=== PATIENT | female | born 1980 | race Caucasian/White ===

== ENCOUNTER 2018-02-07 08:05 | Outpatient (CLI) | payer MEDICAID, SELFPAY ==
[2018-02-07 10:04] LABS: Cholesterol 244 mg/dL (50-200); HDL Cholesterol 50 mg/dL (40-60); LDL CHOLESTEROL 171 mg/dL (<100); Triglyceride 101 mg/dL (30-150)
== END 2018-02-07 08:25 ==
PROVIDERS: PCP Nurse Practitioner; Visit Provider Nurse Practitioner
DX: E78.5 Hyperlipidemia, unspecified (principal)
CPT/HCPCS: 36415; 80061; 83721

== ENCOUNTER 2018-07-04 08:32 | Outpatient (CLI) | payer MEDICAID, SELFPAY ==
[2018-07-04 09:46] LABS: Cholesterol 161 mg/dL (50-200); HDL Cholesterol 35 mg/dL (40-60); LDL CHOLESTEROL 108 mg/dL (<100); Triglyceride 55 mg/dL (30-150)
== END 2018-07-04 08:52 ==
PROVIDERS: PCP Nurse Practitioner; Visit Provider Nurse Practitioner
DX: E78.5 Hyperlipidemia, unspecified (principal)
CPT/HCPCS: 36415; 80061; 83721

== ENCOUNTER 2018-11-15 01:02 | Outpatient (CLI) | payer MEDICAID, SELFPAY ==
--- NOTE | 2018-11-15 14:01 | DI.COMBO_ITS ---
SYMPTOM/DIAGNOSIS: LUMP 4:00 ON RIGHT. CYSTIC BREAST TISSUE N63.0 N63.0 Z80.3 MAMMOGRAPHY: RIGHT BREAST ULTRASOUND: Mammograms were interpreted according to the usual protocol including computer analysis with CAD system, tomosynthesis and C view imaging. Comparison with prior examinations. Right breast ultrasound was also performed. Breast density category A. No suspicious masses or microcalcifications are seen. The skin and axilla are unremarkable. A right breast ultrasound was performed. The upper outer quadrants and the lower inner quadrants of the right breast were evaluated sonographically. No cystic or solid masses are present.. IMPRESSION: No evidence for malignancy. Yearly mammography is recommended. Category 1. Breast density category A. The findings were discussed with the patient on the date of the examination. [facility] ASSESSMENT OF FINDINGS: Negative. Category 1. Patient will receive a letter notifying them of these results. BI-RAD category A. The breasts are almost entirely fatty.
== END 2018-11-15 01:22 ==
PROVIDERS: PCP Nurse Practitioner; Visit Provider Nurse Practitioner
DX: N63.14 Unspecified lump in the right breast, lower inner quadrant (principal); Z80.3 Family history of malignant neoplasm of breast; N60.11 Diffuse cystic mastopathy of right breast
CPT/HCPCS: 76642; 77062; 77066; G0279

== ENCOUNTER 2019-03-02 01:22 | Outpatient (CLI) | payer MEDICAID, SELFPAY ==
[2019-03-02 12:03] LABS: Calculated LDL 177 mg/dL; Cholesterol 247 mg/dL (<200); HDL Cholesterol 56 mg/dL (40-60); TSH (W/Ref FT4) 1.07 uIU/mL (0.36-3.74); Triglyceride 70 mg/dL (<150)
== END 2019-03-02 01:42 ==
PROVIDERS: PCP Nurse Practitioner; Visit Provider Nurse Practitioner
DX: E78.5 Hyperlipidemia, unspecified (principal)
CPT/HCPCS: 36415; 80061; 84443

== ENCOUNTER 2019-11-18 02:16 | Outpatient (CLI) | payer MEDICAID, SELFPAY | END 2019-11-18 02:36 | PROVIDERS: PCP Nurse Practitioner; Visit Provider Nurse Practitioner | DX: R69 Illness, unspecified (principal) | CPT/HCPCS: 36415; 80061; 84443 ==

== ENCOUNTER 2020-03-19 02:17 | Outpatient (CLI) | payer MEDICAID, SELFPAY ==
[2020-03-19 11:12] LABS: Calculated LDL 191 mg/dL (<100); Cholesterol 264 mg/dL (<200); HDL Cholesterol 55 mg/dL (40-60); TSH (W/Ref FT4) 1.67 uIU/mL (0.36-3.74); Triglyceride 90 mg/dL (<150)
== END 2020-03-19 02:37 ==
PROVIDERS: PCP Nurse Practitioner; Visit Provider Nurse Practitioner
DX: E78.5 Hyperlipidemia, unspecified (principal); F41.9 Anxiety disorder, unspecified
CPT/HCPCS: 36415; 80061; 84443

== ENCOUNTER 2020-04-02 13:34 | Outpatient (REF) | payer MEDICAID, SELFPAY | END 2020-04-02 13:54 | LOC: LBO 13:34 | PROVIDERS: PCP Nurse Practitioner; Visit Provider Family Medicine | DX: J03.90 Acute tonsillitis, unspecified (principal) | CPT/HCPCS: 87070 ==

== ENCOUNTER 2020-05-20 15:04 | Outpatient (CLI) | payer MEDICAID, SELFPAY ==
--- NOTE | 2020-05-20 15:00 | RT.EKG_ITS ---
APPROVED REPORT Exam: Resting ECG Patient Location: O HR:79 bpm ECG Measurements Heart Rate 79 AXIS AL 145 P 52 QRSd 99 QRS 26 QT 375 T 25 QTc 430 Conclusion Sinus rhythm...normal P axis, V-rate 60- 99 Normal Electrocardiogram
== END 2020-05-20 15:05 | disposition home or self-care (01) ==
LOC: DI.KIM 15:05
PROVIDERS: PCP Nurse Practitioner; Visit Provider Nurse Practitioner
DX: F90.9 Attention-deficit hyperactivity disorder, unspecified type (principal); F15.90 Other stimulant use, unspecified, uncomplicated
CPT/HCPCS: 93010

== ENCOUNTER 2020-06-12 03:07 | Outpatient (CLI) | payer MEDICAID, SELFPAY ==
[2020-06-12 07:41] LABS: HGB 14.2 g/dL (11.2-15.7); MCH 30.4 pg (27.0-33.0); MCHC 33.8 % (32.0-36.0); MCV 89.9 fL (80-95); MPV 10.6 fL (8.0-11.0); Platelet Count 263 10^3/uL (130-400); RBC 4.67 10^6/uL (3.93-5.22); RDW 12.4 % (11.7-14.6); RDW-SD 40.7 fL; WBC 6.78 10^3/uL (4.4-10.8)
[2020-06-12 09:07] LABS: ALT 26 U/L (14-59); AST 13 U/L (15-37); Albumin 3.8 g/dL (3.4-5.0); Alkaline Phosphatase 66 U/L (46-116); Anion Gap 9.9 mmol/L (3-11); BUN 19 mg/dL (7-18); Bilirubin, Total 0.5 mg/dL (0.2-1.0); CO2 26.1 mmol/L (21.0-32.0); CREATININE 0.8 mg/dL (0.55-1.02); Calcium 8.7 mg/dL (8.5-10.1); Calculated LDL 149 mg/dL (<100); Chloride 103 mmol/L (98-107); Cholesterol 214 mg/dL (<200); Glucose 98 mg/dL (74-106); HDL Cholesterol 49 mg/dL (40-60); Potassium 4.2 mmol/L (3.5-5.1); Sodium 139 mmol/L (136-145); Total Protein 7.3 g/dL (6.4-8.2); Triglyceride 81 mg/dL (<150)
== END 2020-06-12 03:08 | disposition home or self-care (01) ==
LOC: LBO 03:07
PROVIDERS: PCP Nurse Practitioner; Visit Provider Nurse Practitioner
DX: E11.9 Type 2 diabetes mellitus without complications (principal); E78.5 Hyperlipidemia, unspecified; F90.8 Attention-deficit hyperactivity disorder, other type
CPT/HCPCS: 36415; 80053; 80061; 85027; 83036

== ENCOUNTER 2020-06-12 03:40 | Outpatient (CLI) | payer MEDICAID, SELFPAY ==
--- NOTE | 2020-06-12 07:00 | DI.MAMMO_ITS ---
EXAM: MAMMO SCREENING CLINICAL HISTORY: screening,z12.39 TECHNIQUE: Mammograms were interpreted according to the usual protocol including computer analysis w [employer] CAD system, tomosynthesis and C-view imaging. COMPARISON: 2017 and 2018 FINDINGS: The breasts are composed of mainly fatty density , Breast Density category A. No suspicious masses or suspicious microcalcifications are seen. No skin thickening or abnormal axillary lymph nodes are seen. There has been no significant change from prior exams. IMPRESSION: BI-RADS Category 1, Negative mammogram Yearly screening mammography is recommended. Breast Density - Category A, fatty density. A negative radiographic report should not delay biopsy if a dominant or clinically suspicious mass is present. Up to ten percent of cancers are not identified on mammography. A negative report may reinforce clinical impression. Adenosis and dense breasts may obscure an underlying neoplasm. False positive reports average 6 to 10%. Patient will receive a letter notifying them of these results.
== END 2020-06-12 04:00 ==
PROVIDERS: PCP Nurse Practitioner; Visit Provider Nurse Practitioner
DX: Z12.31 Encounter for screening mammogram for malignant neoplasm of breast (principal)
CPT/HCPCS: 77063; 77067

== ENCOUNTER 2020-06-12 18:00 | Outpatient (REF) | payer MEDICAID, SELFPAY ==
--- NOTE | 2020-06-12 10:15 | PAPFT_PTH ---
PATIENT: Rosetta Golden LOC: N U#:[id number] AGE/SX: 40/F ROOM: RE06/12/[address]: Erma Viera APRN : 1980 BED: DIS: 06/12/2020 SPEC #: [id number] RECD: 06/12/20 18:32 STATUS: TRISHAKarthik REQ #: [id number] LYNN: 06/12/20 10:[address]: Erma Viera DEPT: [facility] Cytology RECD BY: Lisset Romero ENTERED: 06/12/20 18:32 SP TYPE: PAPFT OTHR DR: Suzanne Flores APRN Tissues: 1 - CX/ENDOCX FOR PAP SMEARS Procedures: PAP THIN PREP/UVM Screening HPV DNA PROBE Comments: [id number]
== END 2020-06-12 18:01 | disposition home or self-care (01) ==
LOC: LBN 18:00
PROVIDERS: PCP Nurse Practitioner; Visit Provider Nurse Practitioner Adult Health
DX: Z12.4 Encounter for screening for malignant neoplasm of cervix (principal); Z11.51 Encounter for screening for human papillomavirus (HPV)
CPT/HCPCS: 88142; 87624

== ENCOUNTER 2020-08-14 04:07 | Outpatient (CLI) | payer MEDICAID, SELFPAY ==
--- NOTE | 2020-08-14 06:26 | DI.US_ITS ---
Exam(s) US PELVIS TRANSVAGINAL EXAM: US PELVIS TRANSVAGINAL CLINICAL HISTORY: evaluate anatomy and endometrial stripe,MENORRHAGIA TECHNIQUE: Ultrasound performed using standard protocol. COMPARISON: US US breast RT complete from 11/15/2018 FINDINGS: Pelvic ultrasound was performed transabdominally and transvaginally. Uterus measures 11.6 x 4.1 x 5. 5 cm. Endometrial stripe is about 8 millimeters in thickness and appears homogeneous. No focal myom etrial abnormality seen. The ovaries have a normal follicular appearance. Right ovary measures 28 x 18 by 17 millimeters and left ovary measures 24 x 18 x 19 millimeters. Limited scanning of the kidneys is unremarkable. No free fluid in the cul-de-sac. IMPRESSION: Negative pelvic ultrasound. DATA REPOSITORY:
== END 2020-08-14 04:27 ==
PROVIDERS: PCP Nurse Practitioner; Visit Provider Obstetrics & Gynecology
DX: N92.0 Excessive and frequent menstruation with regular cycle (principal)
CPT/HCPCS: 76830; 76856

== ENCOUNTER 2020-08-20 13:59 | Outpatient (REF) | payer MEDICAID, SELFPAY ==
--- NOTE | 2020-08-20 13:30 | ENDOMET_PTH ---
PATIENT: Rosetta Golden LOC: LBN U#:[id number] AGE/SX: 40/F ROOM: RE08/20/[address]: Zenaida Ogden DO : 1980 BED: DIS: 08/20/2020 SPEC #: [id number] RECD: 08/20/20 17:42 STATUS: ARAM RE #: [id number] LYNN: 08/20/20 13:[address]: Zenaida Ogden DEPT: Surgical Specimen RECD BY: Lisset Romero ENTERED: 08/20/20 17:43 SP TYPE: Endomet OTHR DR: Suzanne Flores APRN Tissues: 1 - ENDOMETRIUM BX/ZACKERY Procedures: GROSS AND MICRO LEVEL 4 Comments: [id number]
== END 2020-08-20 14:00 | disposition home or self-care (01) ==
LOC: LBN 13:59
PROVIDERS: PCP Nurse Practitioner; Visit Provider Obstetrics & Gynecology
DX: N93.8 Other specified abnormal uterine and vaginal bleeding (principal); N85.8 Other specified noninflammatory disorders of uterus
CPT/HCPCS: 88305

== ENCOUNTER 2020-09-20 13:21 | Emergency (ER) | payer MEDICAID, SELFPAY ==
--- NOTE | 2020-09-20 13:30 | ED.GENADUL_ITS ---
Discharge Plan Disposition Patient Disposition: HOME Condition: Stable Discharge Details Clinical Impression: Back pain, Hematuria Primary Care Provider: Suzanne Flores ED Provider: Bk Alvarez Home Meds and New Rx's Prescriptions: Continued clindamycin phosphate 1 % gel 1 applic TP QHS Qty: 60 RF: 5 bupropion HCl [Wellbutrin XL] 300 mg tablet extended release 24 hr 300 mg PO DAILY Qty: 90 RF: 3 sertraline 100 mg tablet 100 mg PO DAILY Qty: 90 RF: 3 methylphenidate HCl 20 mg tablet 20 mg PO TID MDD 60mg Qty: 90 RF: 0 fluconazole 150 mg tablet 150 mg PO DAILY Qty: 1 RF: 1 Discharge Instructions Instructions: Hematuria (ED), Back Pain (ED) Additional Instructions: At this time your back pain appears to musculoskeletal, specifically her right SI joint. Gentle stretching as tolerated. Cool and/or warm compresses every 2 hours for 20 minutes. Siio-jjx-ebpawhg anti-inflammatory therapy such as Motrin or Naprosyn as we discussed. I do believe that your mild hematuria is likely incidental, it appears as though you have had the similar findings in your previous to urinalysis. As we discussed I recommend contacting your primary care provider tomorrow to discuss your ongoing back pain, eventual referral to physical therapy, orthopedics, SI injection, etc. may all be indicated. We also discussed if you would like to continue your work-up for the hematuria, likely referral to urology could be indicated as well. Discharge Data Discharge Date/Time-TO BE ENTERED AT DEPARTURE: 09/20/20 16:33 Medical Decision Making 40-year-old female presents with right-sided back pain, worse with movement, somewhat relieved with Naprosyn. Clinically this appears to musculoskeletal, does have point tenderness over the right SI joint, pain is worse with movement, positive straight leg raise. Denies fever, abdominal pain, nausea, vomiting, flank pain, dysuria, hematuria, etc. Patient specifically states that she is concerned about her kidneys. Will obtain IV access, CBC, CMP, urinalysis, test. If work-up unremarkable will give IV Toradol CBC and CMP unremarkable for any obvious emergent process. Urine blood test trace intact blood; however, when looking her previous urinalysis in 2017, 2013 she had blood in her urine then. 0-2 red cells in the microscopic. Discussed laboratory values and urinalysis with patient. Patient received IV Toradol, reports improvement of her symptoms. Her examination really is not consistent with renal stone. We discussed CT imaging during today's ER visit. Patient states that her mllkkk-kl-zrv had a bladder cancer, and her hematuria is overall concerning to her. I explained to her that a referral to urology and likely cystoscopy would be the standard of care for her hematuria but again I could certainly provide CT imaging today. Patient is comfortable not obtaining CT imaging today, treating her back discomfort is musculoskeletal, and will contact her primary care provider on Monday. At that time she will discuss her back pain, symptoms, response to conservative therapy. She understands that outpatient referral to PT, back specialist, etc. may be indicated. She will also discuss her hematuria and potential urology follow-up. Patient is comfortable with this plan and has no additional questions or concerns. Medical Records Medical records reviewed: Yes I reviewed the patient's medical records. Lab Data Lab results reviewed: Yes I reviewed the patient's lab results. Labs: Laboratory Tests Range/Units 09/20/20 09/20/20 09/20/20 13:50 13:55 13:55 WBC (4.4-10.8) 10^3/uL 10.32 RBC (3.93-5.22) 10^6/uL 4.99 Hgb (11.2-15.7) g/dL 15.0 Hct (36.0-46.0) % 45.7 MCV (80-95) fL 91.6 MCH (27.0-33.0) pg 30.1 MCHC (32.0-36.0) % 32.8 RDW (11.7-14.6) % 12.1 Plt Count (130-400) 10^3/uL 295 MPV (8.0-11.0) fL 10.9 Immature Gran % 0.3 Neutrophils % 63.9 Lymphocytes % 25.2 Monocytes % 8.2 Eosinophils % 1.7 Basophils % 0.7 Nucleated RBC % % 0 Absolute Neutrophils (1.2-6.7) 10^3/uL 6.59 Absolute Lymphocytes (1.2-3.4) 10^3/uL 2.60 Absolute Monocytes (0.1-0.8) 10^3/uL 0.85 H Absolute Eosinophils (0.0-0.7) 10^3/uL 0.18 Absolute Basophils (0.0-0.2) 10^3/uL 0.07 Sodium (136-145) mmol/L 139 Potassium (3.5-5.1) mmol/L 3.8 Chloride (98-107) mmol/L 102 Carbon Dioxide (21.0-32.0) mmol/L 25.1 Anion Gap (3-11) mmol/L 11.9 H BUN (7-18) mg/dL 15 Creatinine (0.55-1.02) mg/dL 0.9 Estimated GFR/1.73 m2 (mL/min/1.73m2) >= 60.00 Glucose (74-106) mg/dL 91 Calcium (8.5-10.1) mg/dL 8.7 Total Bilirubin (0.2-1.0) mg/dL 0.4 AST (15-37) U/L 19 ALT (14-59) U/L 35 Alkaline Phosphatase (46-116) U/L 91 Total Protein (6.4-8.2) g/dL 8.2 Albumin (3.4-5.0) g/dL 4.1 Urine Color (Yellow) Yellow Urine Clarity (Clear) Clear Urine pH (5-8) 7.0 Ur Specific [place] (1.005-1.025) 1.015 Urine Protein (Negative) mg/dL Negative Urine Ketones (Negative) mg/dL Negative Urine Blood (Negative) Trace-intact H Urine Nitrite (Negative) Negative Urine Bilirubin (Negative) Negative Urine Urobilinogen (Up TO 0.2) EU/dL 0.2 Ur Leukocyte Esterase (Negative) Negative Urine RBC (0-2) HPF 0-2 Urine WBC (0-5) HPF 0-2 Ur Epithelial Cells (Negative) HPF Few Urine Crystals (Negative) HPF Negative Urine Bacteria (Negative) HPF Negative Urine Casts (Negative) LPF Negative Urine Mucus (Negative) Negative Urine Other (Negative) Ur Culture Indicated? No Urine Glucose (Negative) mg/dL Negative HPI General Mode of arrival: ambulatory . Date/Time Provider Initiated Documentation: 09/20/20 13:30 . Limitations to Documentation: no limitations . Information obtained by: patient . HPI Narrative: This is a 40-year-old female, past medical history that includes hyperlipidemia, chronic anxiety, and menorrhagia, presenting to the ER today complaining of lower right back pain that began over the past 24 hours. Patient denies any recent illness or trauma. She states that the pain stays primarily in her right lower back and is worse with movement and is achy in nature. She did take an gjzi-uyg-jvumsbv anti- inflammatory that did relieve some of the discomfort. She denies fever, chest pain, shortness of breath abdominal pain, nausea, vomiting, change in bowel or bladder function, dysuria, hematuria, diarrhea, constipation, radiation of pain down her leg or into her groin. Denies numbness, tingling, weakness. Patient denies history of any back issues. Related Data Home Medications Medication Instructions Recorded Confirmed clindamycin phosphate 1 % topical 1 applic TP QHS #60 gm 01/23/19 09/20/20 gel bupropion HCl 300 mg 24 hr tablet, 300 mg PO DAILY #90 tab-cap 05/20/20 09/20/20 extended release sertraline 100 mg tablet 100 mg PO DAILY #90 tab-cap 05/20/20 09/20/20 methylphenidate HCl 20 mg tablet 20 mg PO TID #90 tab MDD 60mg 08/06/20 09/20/20 fluconazole 150 mg tablet 150 mg PO DAILY #1 tab 09/03/20 09/20/20 Previous Rx's Medication Instructions Recorded clindamycin phosphate 1 % topical 1 applic TP QHS #60 gm 01/23/19 gel bupropion HCl 300 mg 24 hr tablet, 300 mg PO DAILY #90 tab-cap 05/20/20 extended release sertraline 100 mg tablet 100 mg PO DAILY #90 tab-cap 05/20/20 methylphenidate HCl 20 mg tablet 20 mg PO TID #90 tab MDD 60mg 08/06/20 fluconazole 150 mg tablet 150 mg PO DAILY #1 tab 09/03/20 Allergies Allergy/AdvReac Type Severity Reaction Status Date / Time No Known Allergies Allergy Verified 09/20/20 13:36 Review of Systems Constitutional Constitutional: Denies fever(s) and Denies weakness Cardiovascular Cardiovascular: Denies chest pain and Denies dyspnea Respiratory Respiratory: Denies cough and Denies dyspnea Gastrointestinal Gastrointestinal: Denies abdominal pain, Denies nausea and Denies vomiting Genitourinary Genitourinary: Denies hematuria, Denies dysuria and Denies vaginal discharge Musculoskeletal Musculoskeletal: Reports back pain, Denies numbness and Denies tingling Integumentary/Breasts Skin/Breast: Denies rash Neurologic Neurologic: Denies numbness, Denies tingling and Denies weakness [facility] Medical History Bulky or enlarged uterus Chronic anxiety Depression (09/13/16) Hair thinning History of cervical biopsy (04/11/07) No intraepith lesion Hyperlipidemia Menorrhagia with irregular cycle Pancreatitis (07/25/10) Surgical History section x2 Family History Mother , Acute Leukemia Neoplasm Breast Father No problems noted. Social History Smoking/Tobacco Use Status: Never Second Hand Exposure: No Smoking risk assessment performed?: Yes Alcohol Intake: current Alcohol Intake frequency: a few times a week Drug use: Never Adopted: No Caregiver/Support person: No Foster care: No Household members: spouse and children Housing: house Number of Children: 2 Communication Needs: None Do you need help understanding health information?: Never current occupation: owns daycare Pets and animals: Yes Sexually active: Yes Do you think of yourself as: straight/heterosexual Current gender identity: female What is your relationship status?: How often do you talk on the phone with friends or family?: three or more times per week How often do you get together with friends or relatives?: decline to answer How often do you attend methodist or yazdanism services?: decline to answer Do you belong to any clubs or organized social groups?: decline to answer Panel score (0-1 are the most socially isolated patients): 2 What type of physical activity do you participate in: none Special aaron needs: No Seatbelt use: always Drive intox or ride w/intox emergency medical technician/driver: No Working smoke detector in home: Yes Fire extinguisher in home: Yes Carbon monox detector in home: Yes Do you feel safe in your relationship?: Yes Exam Const General: cooperative, healthy appearing, comfortable and no acute distress Orientation: alert and awake HENKY Head: normal to inspection, normocephalic and atraumatic Eyes General: appearance normal, both eyes and all related structures Conjunctivae: conjunctivae normal Neck Neck: normal visual inspection, full ROM, trachea midline and supple Resp Effort & Inspection: normal respiratory effort and able to speak in complete sentences Auscultation: clear to auscultation bilaterally Cardio Rate: regular rate Rhythm: regular rhythm GI Inspection: normal to inspection Palpation: soft, not firm, no guarding, no pulsatile masses and nontender Auscultation: normal bowel sounds Back/Spine/Pelvis Back: no CVA tenderness and back tenderness (Diffuse mild right lumbar) Thoracic/Lumbar Spine: straight leg raise positive (Right, 10 degrees, negative L side) Pelvis: no pain with anterior-posterior compression and no pain with lateral compression Sacroiliac joints: on the right tender to palpation Skin General skin exam: no rashes or lesions noted Neuro General: patient alert, patient awake, moves all extremities and no focal motor deficits Cognition: normal cognition Speech: speech normal Gait: normal gait Motor: muscle tone normal throughout and strength 5/5 throughout Sensory Exam: no sensory deficits noted Extrem General: normal to inspection, full ROM and capillary refill normal Psych Appearance: grossly normal Mental Status: mental status grossly normal
[2020-09-20 13:33] VITALS: BP 161/109; PULSE 75; RESP 16; TEMP 36.6; O2SAT 99
[2020-09-20 14:22] LABS: Bilirubin Negative (Negative); Blood Trace-intact (Negative); Clarity Clear (Clear); Glucose Negative (Negative); Ketones Negative (Negative); Leukocyte Esterase Negative (Negative); Nitrite Negative (Negative); Specific Gravity 1.015 (1.005-1.025); Urobilinogen 0.2 EU/dL (Up TO 0.2)
[2020-09-20 14:30] LABS: Bacteria Negative HPF (Negative); C & S Indicated? No; Casts Negative LPF (Negative); Crystals Negative HPF (Negative); Epithelial Cells Few HPF (Negative); Mucus Negative (Negative); RBC 0-2 HPF (0-2); WBC 0-2 HPF (0-5)
[2020-09-20 14:36] LABS: Abs Immature Grans 0.03 10^3/uL (0.0-0.06); Absolute Basophil Count 0.07 10^3/uL (0.0-0.2); Absolute Eosinophil Count 0.18 10^3/uL (0.0-0.7); Absolute Monocyte Count 0.85 10^3/uL (0.1-0.8); Absolute Neutrophil Count 6.59 10^3/uL (1.2-6.7); Basophils % 0.7; Eosinophils % 1.7; HCT 45.7 % (36.0-46.0); Immature Grans % 0.3; Lymphocytes % 25.2; MCH 30.1 pg (27.0-33.0); MCHC 32.8 % (32.0-36.0); MCV 91.6 fL (80-95); MPV 10.9 fL (8.0-11.0); Monocytes % 8.2; Neutrophils % 63.9; Nucleated RBC 0 %; Platelet Count 295 10^3/uL (130-400); RBC 4.99 10^6/uL (3.93-5.22); RDW 12.1 % (11.7-14.6); RDW-SD 40.5 fL; WBC 10.32 10^3/uL (4.4-10.8)
[2020-09-20 14:49] LABS: ALT 35 U/L (14-59); AST 19 U/L (15-37); Albumin 4.1 g/dL (3.4-5.0); Alkaline Phosphatase 91 U/L (46-116); Anion Gap 11.9 mmol/L (3-11); BUN 15 mg/dL (7-18); Bilirubin, Total 0.4 mg/dL (0.2-1.0); CO2 25.1 mmol/L (21.0-32.0); CREATININE 0.9 mg/dL (0.55-1.02); Calcium 8.7 mg/dL (8.5-10.1); Chloride 102 mmol/L (98-107); Glucose 91 mg/dL (74-106); Potassium 3.8 mmol/L (3.5-5.1); Sodium 139 mmol/L (136-145); Total Protein 8.2 g/dL (6.4-8.2)
[2020-09-20] MEDS: Ketorolac 30 MG/ML VIAL IVP (15:05)
[2020-09-20 16:30] VITALS: BP 114/82; PULSE 69; RESP 16; TEMP 36.7; O2SAT 99
== END 2020-09-20 16:33 | disposition home or self-care (01) ==
PROVIDERS: Emergency Provider Physician Assistant; PCP Nurse Practitioner
DX: M54.5 Low back pain (principal); R31.9 Hematuria, unspecified
CPT/HCPCS: 36415; 80053; 81025; 96374; 99284; 81003; 81015; 85025; 99283; J1885

== ENCOUNTER 2020-11-23 13:55 | Outpatient (CLI) | payer MEDICAID, SELFPAY ==
[2020-11-27 15:49] LABS: Testosterone, Free 0.35 ng/dL (0.06-1.00); Testosterone, Total 25 ng/dL (8-60)
== END 2020-11-23 13:56 | disposition home or self-care (01) ==
LOC: LOS 13:56
PROVIDERS: PCP Nurse Practitioner; Visit Provider Nurse Practitioner
DX: N92.6 Irregular menstruation, unspecified (principal); R79.9 Abnormal finding of blood chemistry, unspecified
CPT/HCPCS: 36415; 84402; 84403

== ENCOUNTER 2021-09-24 02:51 | Outpatient (CLI) | payer MEDICAID, SELFPAY ==
[2021-09-24 08:11] LABS: Hemoglobin A1C 5.1 % (<5.7)
[2021-09-24 09:03] LABS: Calculated LDL 136 mg/dL (<100); Cholesterol 212 mg/dL (<200); HDL Cholesterol 46 mg/dL (40-60); Triglyceride 150 mg/dL (<150)
== END 2021-09-24 02:52 | disposition home or self-care (01) ==
PROVIDERS: PCP Nurse Practitioner; Visit Provider Nurse Practitioner
DX: E78.5 Hyperlipidemia, unspecified (principal); E66.9 Obesity, unspecified; Z13.1 Encounter for screening for diabetes mellitus
CPT/HCPCS: 36415; 80061; 83036

== ENCOUNTER → 2021-11-17 01:25 | Outpatient (CLI) | payer MEDICAID, SELFPAY ==
--- NOTE | 2021-11-17 09:02 | DI.MAMMO_ITS ---
Exam(s) MAMMO SCREENING EXAM: MAMMO SCREENING CLINICAL HISTORY: screening,z12.39,z80.3, family h/o breast ca. TECHNIQUE: Bilateral full field digital CC and MLO mammographic images were obtained with 3D tomosyn thesis and utilizing computer aided detection (CAD). COMPARISON: Prior mammograms were reviewed, the most recent being May 2020. FINDINGS: There has been no significant change in the appearance and distribution of the fibroglandular tissue which is again noted be predominately fatty. There are no CAD designations. There are no new spiculated masses nor malignant appearing microcalcification groups. There is no significant architectural distortion nor skin thickening-retraction. IMPRESSION: No radiographic evidence of malignancy. BI-RADS Category 1 - Negative Breast Density - Category A - Almost entirely fatty Breast density Category C or D implies that the patient has dense breast tissue. Dense breast tissue can make it harder to find cancer on a mammogram. Dense breast tissue is also associated with an incr eased risk of breast cancer. This information about the result of the mammogram report was provided to the patient to raise their awareness. Use this report when you speak with the patient about their risks for breast cancer, which includes their family history. At that time, you may recommend additional screening tests (Ultrasoun d or MRI) as these tests may add significant information. A negative radiographic report should not delay biopsy if a dominant or clinically suspicious mass is present. Up to ten percent of cancers are not identified on mammography. A negative report may reinforce clinical impression. Adenosis and dense breasts may obscure an underlying neoplasm. False positive reports average 6 to 10%. Patient will receive a letter notifying them of these results.
== END ==
PROVIDERS: PCP Nurse Practitioner; Visit Provider Nurse Practitioner
DX: Z12.31 Encounter for screening mammogram for malignant neoplasm of breast (principal); Z80.3 Family history of malignant neoplasm of breast
CPT/HCPCS: 77063; 77067

== ENCOUNTER 2021-12-14 00:53 | Outpatient (CLI) | payer MEDICAID, SELFPAY ==
--- NOTE | 2021-12-14 07:15 | DI.US_ITS ---
Exam(s) US PELVIS TRANSVAGINAL EXAM: US PELVIS TRANSVAGINAL CLINICAL HISTORY: pelvic pain,R10.2 TECHNIQUE: Ultrasound of the pelvis was performed both transabdominal and transvaginal. COMPARISON: US US PELVIS TRANSVAGINAL from 08/14/2020 FINDINGS: UTERUS: Measures 7.3 cm length x 5.5 cm AP x 6.0 cm wide. There are no uterine fibroids. Endometrial thickness measures 14 mm. There is no fluid in the endometrial canal. CERVIX: There are no obvious nabothian cysts. RIGHT OVARY: Measures 2 x 1.6 x 1.6 cm No significant cysts nor masses evident in the right ovary. LEFT OVARY: Measures 2.9 x 3.3 x 3.9 cm Contains what appears to be a probable cyst measuring 2.1 x 2.1 x 1.8 cm. It is difficult to accurat marguerite study this finding because of immediately adjacent bowel loops CUL-DE-SAC: No free fluid evident. IMPRESSION: 1. Normal appearing uterus. 2. No abnormal right ovarian findings. 3. Probable cyst in left ovary measuring 0.1 x 2.1 x 1.8 cm. However, it was somewhat difficult to a dequately study this finding because of the immediately adjacent bowel loops causing artifact. Recom mend follow-up ultrasound in 3 months. DATA REPOSITORY:
== END 2021-12-14 01:13 ==
LOC: DI 00:53
PROVIDERS: PCP Nurse Practitioner; Visit Provider Obstetrics & Gynecology
DX: R10.2 Pelvic and perineal pain (principal); R93.89 Abnormal findings on diagnostic imaging of other specified body structures
CPT/HCPCS: 76830; 76856

== ENCOUNTER 2022-06-14 03:07 | Emergency (ER) | payer MEDICAID, SELFPAY ==
[2022-06-14 03:11] VITALS: BP 153/90; PULSE 83; RESP 20; TEMP 36.4
--- NOTE | 2022-06-14 03:15 | DI.RAD_ITS ---
Exam(s) XR FOOT RT COMPLETE EXAM: XR FOOT RT COMPLETE CLINICAL HISTORY: pain R 5th metatarsal, r/o fracture. TECHNIQUE: 2D digital imaging was performed of the right foot. Three images were obtained. AP, obl ique and lateral views were obtained. COMPARISON: No exams were available for comparison FINDINGS: BONES: No acute fracture is present. No bony destructive lesion is seen. There is a small plantar micaela caneal spur. JOINTS: No dislocation present. SOFT TISSUE: Normal. IMPRESSION: No acute fracture or dislocation. DATA REPOSITORY: RADIATION DOSE DELIVERED:
--- NOTE | 2022-06-14 03:17 | W.ED.GENAD ---
Discharge Plan Disposition Patient Disposition: Home Condition: Stable Discharge Details Clinical Impression: Right foot sprain Primary Care Provider: Suzanne Flores ED Provider: Lianna Smalls Home Meds and New Rx's Prescriptions: Continued fluconazole 150 mg tablet 150 mg PO DAILY Qty: 1 1RF lisdexamfetamine 50 mg capsule 50 mg PO DAILY MDD 50mg Qty: 28 0RF lisdexamfetamine 50 mg capsule 50 mg PO DAILY MDD 40mg Qty: 28 0RF lisdexamfetamine 50 mg capsule 50 mg PO DAILY MDD 50mg Qty: 28 0RF valacyclovir 1 gram tablet 2,000 mg PO BID PRN (Reason: cold sores) Qty: 12 3RF Rx Instructions: 2 tabs BID for 1 day PRN cold sore. sertraline 100 mg tablet 100 mg PO DAILY Qty: 90 3RF bupropion HCl [Wellbutrin XL] 300 mg tablet extended release 24 hr 300 mg PO DAILY Qty: 90 3RF Discharge Instructions Instructions: Foot Sprain (ED) Additional Instructions: There were no obvious abnormalities noted on your x-ray today. The final report of your x-ray is pending and you will be notified if the radiologist notes any abnormalities. Rest, ice, and elevate the affected area as much as possible. Alternate tylenol and motrin as needed and directed for pain. Keep the walking boot in place as much as possible to help with compression and pain. Follow-up with your primary care doctor in 1 week as needed and with orthopedics if your symptoms do not improve or worsen for further evaluation. Return to the emergency department with any worsening or new concerning symptoms. Referrals: Radha Monaco DPM [[facility] STAFF PHYSICIAN] - Dewayne Connors MD [ [facility] STAFF PHYSICIAN] - Discharge Data Discharge Date/Time-TO BE ENTERED AT DEPARTURE: 06/14/22 04:18 Discharge Physician: Lianna Smalls Medical Decision Making 42-year-old female presents with right foot pain that started last night. She states she had been sitting on her foot for quite some time when she stood up and suddenly developed pain. Denies any other known injury. She is mostly tender to palpation at the right fifth metatarsal. No ankle tenderness or evidence of trauma. Pain reproducible with movement of foot. No tenderness to palpation of heel. Distal pulses intact. Patient referred for right foot x-ray which was negative for any obvious acute findings. Patient did not want to wait for formal report. She was informed that she will be notified of any abnormalities found by radiologist report. Discussed with patient that she may have an underlying mild stress fracture although sprain is most likely. Will place patient in short walking boot. She declined crutches. She was advised on the importance of rest, ice and elevation and to alternate Tylenol and Motrin. Advised to follow-up with orthopedics or podiatry if symptoms do not improve or worsen. Usual and customary return precautions given prior to discharge. Medical Records Medical records reviewed: Yes I reviewed the patient's medical records. Imaging Data Radiologic Study: Radiologist's impression: XR Right Foot Exam date and time: 06/14/2022 3:41 AM Age: 42 years old Clinical indication: Foot; Right; Patient HX: Pain R 5th metatarsal, R/O fracture TECHNIQUE: Imaging protocol: Radiologic exam of the right foot. Views: 3 or more views. COMPARISON: No relevant prior studies available. FINDINGS: Bones/joints: Normal. Soft tissues: Normal. IMPRESSION: No acute findings. HPI General Mode of arrival: ambulatory. Date/Time Provider Initiated Documentation: 06/14/22 03:09. Limitations to Documentation: no limitations. Information obtained by: patient. HPI Narrative: Patient is a 42-year-old female presents with right foot pain since last night. Patient states she was sitting on her foot for some time last night and when she stood up and attempted to walk she had pain in the area of her right fifth metatarsal and lateral midfoot. She states the pain is worse with weightbearing. She denies any ankle or heel pain. She denies any other known injury. She took naproxen with some relief. Related Data Home Medications Medication Instructions Recorded Confirmed bupropion HCl 300 mg 24 hr tablet, 300 mg PO DAILY #90 tab-caps 10/19/21 06/14/22 extended release (Wellbutrin XL) sertraline 100 mg tablet 100 mg PO DAILY #90 tab-caps 10/19/21 06/14/22 fluconazole 150 mg tablet 150 mg PO DAILY #1 tab 03/15/22 06/14/22 lisdexamfetamine 50 mg capsule 50 mg PO DAILY #28 caps 05/09/22 06/14/22 lisdexamfetamine 50 mg capsule 50 mg PO DAILY #28 caps 05/09/22 06/14/22 lisdexamfetamine 50 mg capsule 50 mg PO DAILY #28 caps 05/09/22 06/14/22 valacyclovir 1 gram tablet 2,000 mg PO BID PRN cold sores #12 05/09/22 06/14/22 tabs Previous Rx's Medication Instructions Recorded bupropion HCl 300 mg 24 hr tablet, 300 mg PO DAILY #90 tab-caps 10/19/21 extended release (Wellbutrin XL) sertraline 100 mg tablet 100 mg PO DAILY #90 tab-caps 10/19/21 fluconazole 150 mg tablet 150 mg PO DAILY #1 tab 03/15/22 lisdexamfetamine 50 mg capsule 50 mg PO DAILY #28 caps 05/09/22 lisdexamfetamine 50 mg capsule 50 mg PO DAILY #28 caps 05/09/22 lisdexamfetamine 50 mg capsule 50 mg PO DAILY #28 caps 05/09/22 valacyclovir 1 gram tablet 2,000 mg PO BID PRN cold sores #12 05/09/22 tabs Allergies Allergy/AdvReac Type Severity Reaction Status Date / Time No Known Allergies Allergy Verified 06/14/22 03:33 General Stated Complaint: Orthopedic DANIELA: 3 Review of Systems All systems reviewed & are unremarkable except as noted in HPI and below Constitutional Constitutional: Reports as per HPI, Denies chills and Denies fever(s) Eyes Eyes: Denies blurry vision ENT Ears, Nose, Mouth, and Throat: Denies dizziness, Denies sore throat and Denies throat swelling Cardiovascular Cardiovascular: Denies chest pain and Denies dyspnea Respiratory Respiratory: Denies cough and Denies dyspnea Gastrointestinal Gastrointestinal: Denies abdominal pain, Denies diarrhea and Denies vomiting Genitourinary Genitourinary: Denies hematuria and Denies dysuria Musculoskeletal Musculoskeletal: Denies back pain and Denies numbness Comments: Right foot pain Integumentary/Breasts Skin/Breast: Denies lesions and Denies rash Neurologic Neurologic: Denies dizziness, Denies localized weakness and Denies numbness Allergic/Immunologic Allergic/Immunologic: Denies throat swelling PFSH All Active Problems (Updated 06/14/22 @ 04:02 by Lianna Smalls DO) Right foot sprain (Acute) Left lower quadrant pain (Acute) Pelvic pain (Acute) Tonsillolith (Acute) Abnormal blood chemistry (Acute) Abnormal menses (Acute) Tonsillar calculus (Acute) Back pain (Acute) Hematuria (Acute) Bulky or enlarged uterus (Acute) Hair thinning (Acute) Menorrhagia with irregular cycle (Acute) Depression (Chronic 09/13/16) Bilateral elbow joint pain (Acute) Acne (Acute) Breast lump (Acute) Relies on tubal ligation as primary control method (Acute 04/27/16) Moderate episode of recurrent major depressive disorder (Acute 09/13/16) Hyperlipidemia, unspecified (Acute 09/13/16) Attention-deficit hyperactivity disorder, unspecified type (Acute 05/29/17) Anxiety (Acute 09/13/16) Achilles tendinitis of right lower extremity (Acute 07/31/15) Medical History Chronic anxiety History of cervical biopsy (04/11/07) No intraepith lesion Hyperlipidemia Pancreatitis (07/25/10) Surgical History section x2 Family History Mother , Acute Leukemia Neoplasm Breast Father Prostate cancer Social History Smoking/Tobacco Use Status: Never Second Hand Exposure: No Smoking risk assessment performed?: Yes Alcohol Intake: current Alcohol Intake frequency: a few times a week Drug use: Never Substance use type: does not use Adopted: No Caregiver/Support person: No Foster care: No Household members: spouse and children Housing: house Number of Children: 2 Communication Needs: None Do you need help understanding health information?: Never current occupation: owns daycare Pets and animals: Yes Sexually active: Yes Do you think of yourself as: straight/heterosexual Current gender identity: female What is your relationship status?: How often do you talk on the phone with friends or family?: three or more times per week How often do you get together with friends or relatives?: decline to answer How often do you attend baptist or mormon services?: decline to answer Do you belong to any clubs or organized social groups?: decline to answer Panel score (0-1 are the most socially isolated patients): 2 What type of physical activity do you participate in: none Special aaron needs: No Seatbelt use: always Drive intox or ride w/intox clamp truck driver: No Working smoke detector in home: Yes Fire extinguisher in home: Yes Carbon monox detector in home: Yes Do you feel safe at home: Yes Do you feel safe in your relationship?: Yes Exam Const General: cooperative, healthy appearing and no acute distress HENMT Head: normal to inspection Mouth: oral mucosae normal Eyes General: appearance normal, both eyes and all related structures Neck Neck: normal visual inspection Resp Effort & Inspection: normal respiratory effort and able to speak in complete sentences Cardio Rate: regular rate Skin General skin exam: no rashes or lesions noted Neuro General: patient alert, patient awake and patient oriented x3 Motor: muscle tone normal throughout Extrem General: normal to inspection Ankle/foot/toe images: 1. Area of tenderness to palpation overlying base of the fifth metatarsal. There is no obvious edema, ecchymosis, erythema or deformity. Other: Right medial and lateral ankle normal to inspection and nontender. Right DP/PT pulses intact. Toes and heel normal to inspection without tenderness. Psych Appearance: grossly normal Affect: normal affect Course Vital Signs Vital signs: Vital Signs Temperature 97.5 F L 06/14/22 03:11 Pulse 83 06/14/22 03:11 Respiratory Rate 20 06/14/22 03:11 Blood Pressure 153/90 H 06/14/22 03:11 Temperature 97.5 F L 06/14/22 03:11 Temperature Source Temporal Artery Scan 06/14/22 03:11 Pulse 83 06/14/22 03:11 Respiratory Rate 20 06/14/22 03:11 Respiratory Effort Normal 06/14/22 03:15 Blood Pressure 153/90 H 06/14/22 03:11 Pain Level 8 06/14/22 03:11
--- NOTE | 2022-06-14 06:30 | DI.VRAD_ITS ---
PROCEDURE INFORMATION: Exam: XR Right Foot Exam date and time: 06/14/2022 3:41 AM Age: 42 years old Clinical indication: Foot; Right; Patient HX: Pain R 5th metatarsal, R/O fracture TECHNIQUE: Imaging protocol: Radiologic exam of the right foot. Views: 3 or more views. COMPARISON: No relevant prior studies available. FINDINGS: Bones/joints: Normal. Soft tissues: Normal. IMPRESSION: No acute findings. Dictated and Authenticated by: Rogelio Monteiro MD. Ordering:MAURICIO Dsouza MD
== END 2022-06-14 04:18 | disposition home or self-care (01) ==
PROVIDERS: Emergency Provider Physician Assistant; PCP Nurse Practitioner
DX: S93.601A Unspecified sprain of right foot, initial encounter (principal); X50.9XXA Other and unspecified overexertion or strenuous movements or postures, initial encounter
CPT/HCPCS: 99283; 73630; 99282

== ENCOUNTER 2022-07-22 01:36 | Outpatient (CLI) | payer MEDICAID, SELFPAY ==
[2022-07-22 08:12] LABS: Abs Immature Grans 0.01 10^3/uL (0.0-0.06); Absolute Basophil Count 0.07 10^3/uL (0.0-0.2); Absolute Eosinophil Count 0.16 10^3/uL (0.0-0.7); Absolute Lymphocyte Count 1.66 10^3/uL (1.2-3.4); Absolute Monocyte Count 0.45 10^3/uL (0.1-0.8); Basophils % 1.2; Eosinophils % 2.7; HGB 14.2 g/dL (11.2-15.7); Immature Grans % 0.2; Lymphocytes % 27.9; MCH 30.3 pg (27.0-33.0); MCHC 34.6 % (32.0-36.0); MCV 88 fL (80-95); MPV 10.4 fL (8.0-11.0); Monocytes % 7.6; Neutrophils % 60.4; Platelet Count 290 10^3/uL (130-400); RBC 4.68 10^6/uL (3.93-5.22); RDW 12.6 % (11.7-14.6); RDW-SD 40.5 fL; WBC 5.95 10^3/uL (4.4-10.8)
[2022-07-22 10:04] LABS: ALT 27 U/L (14-59); AST 14 U/L (15-37); Albumin 3.7 g/dL (3.4-5.0); Alkaline Phosphatase 85 U/L (46-116); Anion Gap 8.6 mmol/L (3-11); BUN 15 mg/dL (7-18); Bilirubin, Total 0.5 mg/dL (0.2-1.0); CO2 27.4 mmol/L (21.0-32.0); CREATININE 0.9 mg/dL (0.55-1.02); Calcium 8.9 mg/dL (8.5-10.1); Calculated LDL 149 mg/dL (<100); Chloride 104 mmol/L (98-107); Cholesterol 209 mg/dL (<200); Estimated GFR 82.88 (mL/min/1.73m2); Glucose 98 mg/dL (74-106); HDL Cholesterol 48 mg/dL (40-60); Potassium 3.9 mmol/L (3.5-5.1); Sodium 140 mmol/L (136-145); Total Protein 7.7 g/dL (6.4-8.2); Triglyceride 63 mg/dL (<150)
== END 2022-07-22 01:37 | disposition home or self-care (01) ==
PROVIDERS: PCP Nurse Practitioner; Visit Provider Nurse Practitioner
DX: F90.9 Attention-deficit hyperactivity disorder, unspecified type (principal)
CPT/HCPCS: 36415; 80053; 80061; 85025

== ENCOUNTER → 2022-11-21 01:22 | Outpatient (CLI) | payer MEDICAID, SELFPAY ==
--- NOTE | 2022-11-21 11:45 | DI.MAMMO_ITS ---
Exam(s) MAMMO SCREENING EXAM: MAMMO SCREENING CLINICAL HISTORY: screening TECHNIQUE: Mammograms were interpreted according to the usual protocol including computer analysis w [employer] CAD system, tomosynthesis and C-view imaging. COMPARISON: 2016 through 2021 FINDINGS: The breasts are composed of mainly fatty density , Breast Density category A. No suspicious masses or suspicious microcalcifications are seen. No skin thickening or abnormal axillary lymph nodes are seen. There has been no significant change from prior exams. IMPRESSION: BI-RADS Category 1, Negative mammogram Yearly screening mammography is recommended. Breast Density - Category A, fatty density. A negative radiographic report should not delay biopsy if a dominant or clinically suspicious mass is present. Up to ten percent of cancers are not identified on mammography. A negative report may reinforce clinical impression. Adenosis and dense breasts may obscure an underlying neoplasm. False positive reports average 6 to 10%. Patient will receive a letter notifying them of these results.
== END ==
PROVIDERS: PCP Nurse Practitioner; Visit Provider Advanced Practice Midwife
DX: Z12.31 Encounter for screening mammogram for malignant neoplasm of breast (principal)
CPT/HCPCS: 77063; 77067

== ENCOUNTER 2023-01-09 17:53 | Outpatient (CLI) | payer MEDICAID, SELFPAY ==
--- NOTE | 2023-01-09 17:45 | RT.EKG_ITS ---
APPROVED REPORT Exam: Resting ECG Reason for Exam: pt on stimulent Patient Location: O HR:70 bpm ECG Measurements Heart Rate 70 AXIS IL 123 P 25 QRSd 92 QRS 26 QT 378 T 14 QTc 408 Conclusion Sinus rhythm...normal P axis, V-rate 50- 99 Normal Electrocardiogram
== END 2023-01-09 17:54 | disposition home or self-care (01) ==
LOC: DI.KIM 17:53
PROVIDERS: PCP Nurse Practitioner; Visit Provider Nurse Practitioner
DX: Z51.81 Encounter for therapeutic drug level monitoring (principal)
CPT/HCPCS: 93010

== ENCOUNTER 2023-04-14 01:18 | Outpatient (CLI) | payer MEDICAID, SELFPAY ==
[2023-04-14 08:46] LABS: Calculated LDL 176 mg/dL (<100); Cholesterol 251 mg/dL (<200); HDL Cholesterol 61 mg/dL (40-60); Triglyceride 72 mg/dL (<150)
== END 2023-04-14 01:19 | disposition home or self-care (01) ==
PROVIDERS: PCP Nurse Practitioner; Visit Provider Nurse Practitioner
DX: E78.5 Hyperlipidemia, unspecified (principal)
CPT/HCPCS: 36415; 80061

== ENCOUNTER 2023-10-13 08:55 | Outpatient (CLI) | payer BC, SELFPAY ==
[2023-10-13 11:15] LABS: ALT 19 U/L (14-59); AST 11 U/L (15-37); Albumin 3.9 g/dL (3.4-5.0); Alkaline Phosphatase 91 U/L (46-116); Anion Gap 7.6 mmol/L (3-11); BUN 15 mg/dL (7-18); Bilirubin, Total 0.55 mg/dL (0.2-1.0); CO2 27.4 mmol/L (21.0-32.0); CREATININE 0.9 mg/dL (0.55-1.02); Calcium 9.1 mg/dL (8.5-10.1); Calculated LDL 138 mg/dL (<100); Chloride 103 mmol/L (98-107); Cholesterol 207 mg/dL (<200); Estimated GFR 82.37 (mL/min/1.73m2); Glucose 91 mg/dL (74-106); HDL Cholesterol 58 mg/dL (40-60); Hemoglobin A1C 5.1 % (<5.7); Potassium 4.7 mmol/L (3.5-5.1); Sodium 138 mmol/L (136-145); TSH (W/Ref FT4) 1.04 uIU/mL (0.36-3.74); Total Protein 8.3 g/dL (6.4-8.2); Triglyceride 57 mg/dL (<150)
== END 2023-10-13 08:56 | disposition home or self-care (01) ==
LOC: LBO 08:55
PROVIDERS: PCP Nurse Practitioner; Visit Provider Nurse Practitioner
DX: E66.9 Obesity, unspecified (principal)
CPT/HCPCS: 36415; 80053; 80061; 83036; 84443

== ENCOUNTER 2023-11-20 02:18 | Outpatient (CLI) | payer BC, SELFPAY ==
--- NOTE | 2023-11-20 06:45 | DI.MAMMO_ITS ---
Exam(s) MAMMO SCREENING EXAM: MAMMO SCREENING CLINICAL HISTORY: screening,z12.39. TECHNIQUE: Bilateral full field digital CC and MLO mammographic images were obtained with 3D tomosyn thesis and utilizing computer aided detection (CAD). COMPARISON: Prior mammograms were reviewed. FINDINGS: There has been no significant change in the appearance and distribution of the fibroglandular tissue. There are no new spiculated masses nor malignant appearing microcalcification groups. There is no significant architectural distortion nor skin thickening-retraction. IMPRESSION: No radiographic evidence of malignancy. BI-RADS Category 1 - Negative Breast Density - Category A - Almost entirely fatty Breast density Category C or D implies that the patient has dense breast tissue. Dense breast tissue can make it harder to find cancer on a mammogram. Dense breast tissue is also associated with an incr eased risk of breast cancer. This information about the result of the mammogram report was provided to the patient to raise their awareness. Use this report when you speak with the patient about their risks for breast cancer, which includes their family history. At that time, you may recommend additional screening tests (Ultrasoun d or MRI) as these tests may add significant information. A negative radiographic report should not delay biopsy if a dominant or clinically suspicious mass is present. Up to ten percent of cancers are not identified on mammography. A negative report may reinforce clinical impression. Adenosis and dense breasts may obscure an underlying neoplasm. False positive reports average 6 to 10%. Patient will receive a letter notifying them of these results.
== END 2023-11-20 02:38 ==
PROVIDERS: PCP Nurse Practitioner; Visit Provider Nurse Practitioner
DX: Z12.31 Encounter for screening mammogram for malignant neoplasm of breast (principal)
CPT/HCPCS: 77063; 77067

== ENCOUNTER 2023-11-20 11:34 | Outpatient (REF) | payer BC, SELFPAY ==
--- NOTE | 2023-11-20 10:00 | PAPFT_PTH ---
PATIENT: Rosetta Golden LOC: [facility] U#:[id number] AGE/SX: 43/F ROOM: RE11/20/[address]: Anu Epperson MD : 1980 BED: DIS: 11/20/2023 SPEC #: [id number] RECD: 11/20/23 17:20 STATUS: ARAM REBrian #: [id number] LYNN: 11/20/23 10:[address]: Anu Epperson DEPT: [facility] Cytology RECD BY: Susannah Venegas ENTERED: 11/20/23 17:20 SP TYPE: PAPFT OT DR: Suzanne Flores APRN Tissues: 1 - CX/ENDOCX FOR PAP SMEARS Procedures: PAP THIN PREP/UVM Screening HPV DNA PROBE Comments: [id number] (HPV 16 & 18/45)
== END 2023-11-20 11:35 | disposition home or self-care (01) ==
LOC: LBN 11:34
PROVIDERS: PCP Nurse Practitioner; Visit Provider Obstetrics & Gynecology
DX: Z80.3 Family history of malignant neoplasm of breast (principal); Z01.419 Encounter for gynecological examination (general) (routine) without abnormal findings
CPT/HCPCS: 88142; 87624

== ENCOUNTER 2024-11-18 03:20 | Outpatient (CLI) | payer BC, SELFPAY ==
--- NOTE | 2024-11-18 08:44 | DI.MAMMO_ITS ---
Exam(s) MAMMO SCREENING EXAM: MAMMO SCREENING CLINICAL HISTORY: screening, Z12.39 TECHNIQUE: Bilateral full field digital CC and MLO mammographic images were obtained with 3D tomosynthesis and utilizing computer aided detection (CAD). COMPARISON: Comparison is made with prior examinations. FINDINGS: Masses/Architectural Distortion: No suspicious masses or areas of architectural distortion are present. There is a stable area of nodularity in the retroareolar region of the left breast appreciated on the MLO view. Microcalcifications: No suspicious pleomorphic-type are seen. Skin Thickening/Nipple Retraction: None. IMPRESSION: 1. No significant interval change with no specific features of malignancy noted. 2. Unless there is more urgent need, screening mammography is recommended, as per [place] [employer] guidelines. BI-RADS Category 1 - Negative Breast Density - Category A - The breast are almost entirely fatty. Breast density Category C or D implies that the patient has dense breast tissue. Dense breast tissue can make it harder to find cancer on a mammogram. Dense breast tissue is also associated with an increased risk of breast cancer. This information about the result of the mammogram report was provided to the patient to raise their awareness. Use this report when you speak with the patient about their risks for breast cancer, which includes their family history. At that time, you may recommend additional screening tests (Ultrasound or MRI) as these tests may add significant information. A negative radiographic report should not delay biopsy if a dominant or clinically suspicious mass is present. Up to ten percent of cancers are not identified on mammography. A negative report may reinforce clinical impression. Adenosis and dense breasts may obscure an underlying neoplasm. False positive reports average 6 to 10%. Patient will receive a letter notifying them of these results.
== END 2024-11-18 03:40 ==
LOC: DI 03:20
PROVIDERS: PCP Nurse Practitioner; Visit Provider Family Medicine
DX: Z12.31 Encounter for screening mammogram for malignant neoplasm of breast (principal); R92.313 Mammographic fatty tissue density, bilateral breasts
CPT/HCPCS: 77063; 77067

== ENCOUNTER 2025-03-19 08:29 | Outpatient (CLI) | payer BC, SELFPAY ==
--- NOTE | 2025-03-19 08:15 | RT.EKG_ITS ---
APPROVED REPORT Exam: Resting ECG Reason for Exam: Encounter for monitoring stimulant therapy Patient Location: O HR:71 bpm ECG Measurements Heart Rate 71 AXIS RI 128 P 40 QRSd 93 QRS 31 QT 385 T 22 QTc 419 Conclusion Sinus rhythm...normal P axis, V-rate 50- 99 Baseline wander in lead(s) II,III,aVF Normal Electrocardiogram
== END 2025-03-19 08:30 | disposition home or self-care (01) ==
LOC: DI.KIM 08:31
DX: Z51.81 Encounter for therapeutic drug level monitoring (principal); Z79.899 Other long term (current) drug therapy
CPT/HCPCS: 93010